=== PATIENT | male | born 1970 | race Caucasian/White ===

== ENCOUNTER 2016-07-21 11:57 | Emergency (ER) | payer BC ==
[~2016-07-21] VITALS: Ht 185.4 cm; Wt 111.1 kg
[2016-07-21] MEDS ORDERED: FLOMAX0.4 MG ORAL (12:08)
[2016-07-21] MEDS ORDERED: Fluorescein Strips LEFT EYE ONE (12:15)
[2016-07-21] MEDS ORDERED: Tetracaine 0.5% Opth Soln LEFT EYE ONE (12:15)
[2016-07-21] MEDS ORDERED: OCUFLOX5 ML OP (12:41)
[2016-07-21 12:50] VITALS: BP 170/80
[2016-07-21 12:55] VITALS: BP 170/80
--- NOTE | 2016-07-21 16:07 | Emergency Room Report ---
History of Present Illness General Chief Complaint: Eye Problems Source: Patient Present Illness HPI 35-year-old male presents emergency department complaining of scratching sensation in the left eye with increased lacrimation and some erythema since yesterday. Patient states that yesterday he was struck in the eye by a rock while doing yard work. Patient denies changes in vision, loss of vision, floaters, photophobia, discharge. Patient denies contact lens use. Patient states he is up-to-date with tetanus vaccination. Denies CP, Palpitations, LOC, AMS, dizziness, Changes in Vision, Sensation, paresthesias, or a sudden severe headache. Allergies: Coded Allergies: SOY (Verified Allergy, Unknown, 07/21/16) Patient History Past Medical History: see triage record Past Surgical History: none Pertinent Family History: none Immunizations: UTD Reviewed Nursing Documentation: PMH: Agreed, PSxH: Agreed Nursing Documentation-PMH Past Medical History: No History, Except For Review of Systems All Other Systems: negative except mentioned in HPI Physical Exam Vital Signs Date Time Temp Pulse Resp B/P Pulse Ox O2 Delivery O2 Flow Rate FiO2 07/21/16 12:02 97.9 60 17 114/83 95 Room Air Sp02 EP Interpretation: reviewed, normal General Appearance: no apparent distress, alert, GCS 15, non-toxic Head: normocephalic, atraumatic Eyes: left eye fluoroscene uptake - fluorescein uptake in a linear vertical fashion in the 6 o'clock position of the Left eye, there is no involvement of the iris or pupil. Negative Guilherme sign, left eye other - no fb noted with lid inversion, bilateral eye PERRL, bilateral eye normal inspection ENT: hearing grossly normal, normal pharynx, no angioedema, normal voice Neck: full range of motion Respiratory: lungs clear, normal breath sounds, speaking full sentences Cardiovascular #1: regular rate, rhythm, no edema Cardiovascular #2: 2+ radial (R), 2+ radial (L) Musculoskeletal: back normal, gait/station normal, normal range of motion Neurologic: alert, oriented x3, responsive, motor strength/tone normal, sensory intact, speech normal Psychiatric: judgement/insight normal, memory normal, mood/affect normal Skin: normal color, no rash, warm/dry, well hydrated Medical Decision Making PA Attestation Dr. Tucker is my supervising Physician whom patient management has been discussed with. Diagnostic Impression: Primary Impression: Corneal abrasion Qualified Codes: S05.02XA - Injury of conjunctiva and corneal abrasion without foreign body, left eye, initial encounter ER Course 35-year-old male presents emergency department complaining of scratching sensation in the left eye with increased lacrimation and some erythema since yesterday. Patient states that yesterday he was struck in the eye by a rock while doing yard work. Patient denies changes in vision, loss of vision, floaters, photophobia, discharge. Patient denies contact lens use. Patient states he is up-to-date with tetanus vaccination. Ddx considered but are not limited to: corneal abrasion, acute glaucoma, globe rupture, FB, Corneal Ulcer, conjunctivitis. Iridis Vital signs: are WNL, pt. is afebrile H&PE are most consistent with: corneal abrasion ORDERS: -Tetracaine and Fluorescein Stain of the Left eye: -Increase fluorescein uptake in a linear vertical fashion in the 6 o'clock position of the Left eye, there is no involvement of the iris or pupil. Negative Guilherme sign. Pt. had positive relief of pain with tetracaine drops. there was negative evidence of Fb, deep ulcer, or rupture. -Lid inversion was performed, and no fb was noted. ED INTERVENTIONS: none at this time. DISCHARGE: At this time pt. is stable for d/c to home. Will provide printed patient care instructions, and any necessary prescriptions. Care plan and follow up instructions have been discussed with the patient prior to discharge. . Last Vital Signs Date Time Temp Pulse Resp B/P Pulse Ox O2 Delivery O2 Flow Rate FiO2 07/21/16 12:55 97.9 61 14 170/80 96 Room Air Disposition: HOME, SELF-CARE Condition: Stable Scripts Ofloxacin (OCUFLOX) 5 Ml Drops 3 DROP OP BID for 5 Days, #5 ML Prov: Naila Orozco 07/21/16 Patient Instructions: Corneal Abrasion Additional Instructions: Take medications as directed. Follow up with PCP or Opthalmologist in 3-5 days Return sooner to ED if new symptoms occur, or current symptoms become worse. - Please note that this Emergency Department Report was dictated using [employer] analyst technology software, occasionally this can lead to erroneous entry secondary to interpretation by the dictation equipment. Nalia Orozco Jul 21, 2016 16:07
== END 2016-07-21 12:50 | disposition home or self-care (01) ==
LOC: EMR 12:37
DX: S05.02XA Injury of conjunctiva and corneal abrasion without foreign body, left eye, initial encounter (principal); W22.8XXA Striking against or struck by other objects, initial encounter; Y93.H9 Activity, other involving exterior property and land maintenance, building and construction; Y99.9 Unspecified external cause status
CPT/HCPCS: 99283